=== PATIENT | female | born 1985 | race Two or more races ===

== ENCOUNTER 2020-04-02 05:59 | Day surgery (SDC) | payer OTHER | END 2020-04-02 10:30 | disposition home or self-care (01) | LOC: AMB-ENDOS 05:59 → ADM 14:00 | PROVIDERS: ATTEND Surgery | DX: D13.1 Benign neoplasm of stomach (principal); K44.9 Diaphragmatic hernia without obstruction or gangrene ==

== ENCOUNTER 2024-08-22 10:40 | Outpatient (CLI) | payer OTHER | END 2024-08-22 10:41 | disposition home or self-care (01) | LOC: NUCLEAR 10:40 | PROVIDERS: ATTEND Internal Medicine Rheumatology | DX: M25.50 Pain in unspecified joint (principal) ==

== ENCOUNTER 2025-08-04 09:30 | Inpatient (IN) | payer OTHER ==
[~2025-08-04] VITALS: Ht 160 cm; Wt 73.5 kg
[2025-08-04] MEDS ORDERED: HORIZANT300 MG PO (11:49)
[2025-08-04] MEDS ORDERED: SERTRALINE20 MG/1 ML (11:49)
[2025-08-04] MEDS ORDERED: TRAZODONE HCL100 MG PO (11:49)
[2025-08-04] MEDS ORDERED: PEPCID AC20 MG PO (11:50)
[2025-08-04 11:51] VITALS: BP 121/76
[2025-08-04 11:59] VITALS: BP 99/63
[2025-08-04 12:05] LABS: BASO % 0.5 % (0.1-1.2); EOS # 0.04 (0.04-0.54); EOS % 0.7 % (0.7-7.0); LYMPH # 1.32 (1.18-3.74); LYMPH % 22.8 % (19.3-53.1); MEAN PLATELET VOLUME 10.40 fl (9.4-12.4); MONO # 0.38 (0.24-0.82); MONO % 6.6 % (4.7-12.5); NEUT # 3.99 (1.56-6.13); NEUT % 69.1 % (34.0-71.1); RED CELL DISTRIBUTION WIDTH 12.6 % (11.6-14.4)
[2025-08-04 12:26] LABS: INR 1.04
[2025-08-04 12:51] LABS: ALT/SGPT 30.0 U/L (12-78); AST/SGOT 17.0 U/L (15-37); BILIRUBIN TOTAL 0.67 mg/dL (0.3-1.2); BUN CREA RATIO 32.0 (7.0-25.0); CREATININE SERUM 0.63 mg/dL (0.55-1.02); GFR 104.66; GLOBULINA 3.1 G/DL (2.4-3.5); GLUCOSE FASTING 88.0 mg/dL (65-100); OSMOLALITY SERUM 285.0 MOSM/KG (275-295)
[2025-08-12] MEDS ORDERED: CEFAZOLIN SODIUM 1,000 MG VIAL ONE (08:39)
[2025-08-12] MEDS ORDERED: POVIDONE-IODINE 118 ML BOTT TOP ONE (11:49)
[2025-08-12] MEDS ORDERED: THROMBIN,HU/FIBRINOGEN/CALCIUM 10 ML SYRINGE TOP ONE (15:59)
[2025-08-12] MEDS ORDERED: VISTASEAL DUAL APPICATOR 1 EACH APPL TOP ONE (16:46)
[2025-08-12] MEDS ORDERED: KETOROLAC TROMETHAMINE 30 MG VIAL IV SCH (19:09)
[2025-08-12] MEDS ORDERED: OxyCODONE HCL 5 MG TABLET (ROXICODONE) PO SCH (19:10)
[2025-08-12] MEDS ORDERED: ACETAMINOPHEN 500 MG GEL..CAP PO SCH (19:10)
[2025-08-12] MEDS ORDERED: RINGERS SOLUTION,LACTATED 1,000 ML IV SCH (19:15)
[2025-08-12] MEDS ORDERED: KETOROLAC TROMETHAMINE 30 MG VIAL IV ONE (21:15)
[2025-08-12 21:40] VITALS: BP 121/76
[2025-08-12 21:41] LABS: BASO % 0.1 % (0.1-1.2); EOS # 0.00 (0.04-0.54); EOS % 0.0 % (0.7-7.0); LYMPH # 0.45 (1.18-3.74); LYMPH % 3.2 % (19.3-53.1); MEAN PLATELET VOLUME 10.50 fl (9.4-12.4); MONO # 0.93 (0.24-0.82); MONO % 6.6 % (4.7-12.5); NEUT # 12.73 (1.56-6.13); NEUT % 89.7 % (34.0-71.1); RED CELL DISTRIBUTION WIDTH 12.1 % (11.6-14.4)
[2025-08-12] MEDS ORDERED: MORPHINE SULFATE 4 MG/ML CARTRIDGE IV PRN ×2 (22:00→22:15)
[2025-08-12] MEDS ORDERED: KETOROLAC TROMETHAMINE 30 MG VIAL IV PRN (22:15)
[2025-08-12] MEDS ORDERED: ONDANSETRON HCL 2 MG/ML VIAL IV PRN (23:30)
[2025-08-13 00:53] VITALS: BP 105/65
[2025-08-13 04:33] VITALS: BP 102/66
[2025-08-13 08:41] VITALS: BP 104/65
[2025-08-13] MEDS ORDERED: SIMETHICONE 125 MG CAPSULE PO SCH (09:00)
[2025-08-13] MEDS ORDERED: GABAPENTIN 300 MG CAPSULE PO SCH (09:00)
[2025-08-13 17:29] VITALS: BP 105/67
[2025-08-14 00:29] VITALS: BP 107/68
[2025-08-14 08:00] VITALS: BP 116/80
== END 2025-08-14 09:15 | disposition home or self-care (01) | DRG 743 ==
LOC: EDSTATUS 09:30 → ADM 09:30 → O/R 08-12 08:00 → OB/GYN 08-12 08:00 → SURG 08-12 09:30 → OB/GYN 08-12 18:25 → O/R 08-13 09:29 → OB/GYN 08-13 09:31
PROVIDERS: ADMIT Student in an Organized Health Care Education/Training Program; ATTEND Student in an Organized Health Care Education/Training Program
PROC: 0UT74ZZ Resection of Bilateral Fallopian Tubes, Percutaneous Endoscopic Approach (ICD-10-PCS; 2025-08-12)
PROC: 0UT14ZZ Resection of Left Ovary, Percutaneous Endoscopic Approach (ICD-10-PCS; 2025-08-12)
PROC: 0TNB4ZZ Release Bladder, Percutaneous Endoscopic Approach (ICD-10-PCS; 2025-08-12)
PROC: 0DNW4ZZ Release Peritoneum, Percutaneous Endoscopic Approach (ICD-10-PCS; 2025-08-12)
PROC: 0T788DZ Dilation of Bilateral Ureters with Intraluminal Device, Via Natural or Artificial Opening Endoscopic (ICD-10-PCS; 2025-08-12)
PROC: 8E0W4CZ Robotic Assisted Procedure of Trunk Region, Percutaneous Endoscopic Approach (ICD-10-PCS; 2025-08-12)
PROC: 0TJB8ZZ Inspection of Bladder, Via Natural or Artificial Opening Endoscopic (ICD-10-PCS; 2025-08-12)
PROC: 0UT94ZZ Resection of Uterus, Percutaneous Endoscopic Approach (ICD-10-PCS; principal; 2025-08-12 11:45)
DX: D25.1 Intramural leiomyoma of uterus (principal); N93.9 Abnormal uterine and vaginal bleeding, unspecified; R10.20 Pelvic and perineal pain unspecified side; N80.03 Adenomyosis of the uterus; Z90.710 Acquired absence of both cervix and uterus; N80.00 Endometriosis of the uterus, unspecified; N80.203 Endometriosis of bilateral fallopian tubes, unspecified depth; N80.353 Endometriosis of bilateral pelvic sidewall, unspecified depth; K66.0 Peritoneal adhesions (postprocedural) (postinfection)
CPT/HCPCS: 58573; 52000; 52332; 44180; S2900

== ENCOUNTER 2025-08-18 13:15 | Inpatient (IN) | payer OTHER ==
[~2025-08-18] VITALS: Ht 160 cm; Wt 72.6 kg
[~2025-08-18 13:15] MED LIST: HORIZANT300 MG PO; PEPCID AC20 MG PO; SERTRALINE20 MG/1 ML; TRAZODONE HCL100 MG PO
[2025-08-18] MEDS ORDERED: PERCOCET 5-3251 EACH PO (14:17)
[2025-08-18] MEDS ORDERED: MORPHINE SULFATE 4 MG/ML CARTRIDGE IV SCH (15:39)
[2025-08-18] MEDS ORDERED: PIPERACILLIN/TAZOBACTAM SODIUM 3.375 GM VIAL IV SCH (15:39)
[2025-08-18] MEDS ORDERED: ONDANSETRON HCL 2 MG/ML VIAL IV ONE (15:45)
[2025-08-18] MEDS ORDERED: FAMOtidine 10 MG/ML (4ML VIAL) IV ONE (15:45)
[2025-08-18] MEDS ORDERED: 0.9 % SODIUM CHLORIDE 1,000 ML IV SCH (15:45)
[2025-08-18] MEDS ORDERED: ONDANSETRON HCL 2 MG/ML VIAL ONE (16:18)
[2025-08-18] MEDS ORDERED: FAMOTIDINE/PF 20 MG/2 ML VIAL ONE (16:18)
[2025-08-18] MEDS ORDERED: PIPERACILLIN/TAZOBACTAM SODIUM 3.375 GM VIAL IV ONE (16:18)
[2025-08-18 16:28] LABS: BASO % 0.4 % (0.1-1.2); EOS # 0.22 (0.04-0.54); EOS % 2.8 % (0.7-7.0); LYMPH # 1.74 (1.18-3.74); LYMPH % 22.5 % (19.3-53.1); MEAN PLATELET VOLUME 10.20 fl (9.4-12.4); MONO # 0.66 (0.24-0.82); MONO % 8.5 % (4.7-12.5); NEUT # 5.08 (1.56-6.13); NEUT % 65.5 % (34.0-71.1); RED CELL DISTRIBUTION WIDTH 12.5 % (11.6-14.4)
[2025-08-18 16:44] LABS: ERYTHROCYTE SEDIMENTATION RATE 49 mm/hr (0-20)
[2025-08-18 16:58] LABS: INR 1.05
[2025-08-18] MEDS ORDERED: MORPHINE SULFATE 4 MG/ML CARTRIDGE IV ONE (17:00)
[2025-08-18 17:01] LABS: ALT/SGPT 89.0 U/L (12-78); AST/SGOT 53.0 U/L (15-37); BILIRUBIN TOTAL 0.83 mg/dL (0.3-1.2); BUN CREA RATIO 19.0 (7.0-25.0); CREATININE SERUM 0.75 mg/dL (0.55-1.02); GFR 85.58; GLOBULINA 4.5 G/DL (2.4-3.5); GLUCOSE FASTING 98.0 mg/dL (65-100); OSMOLALITY SERUM 280.0 MOSM/KG (275-295)
[2025-08-18] MEDS ORDERED: DEXAMETHASONE SODIUM PHOSP/PF 10 MG/ML VIAL IV ONE (20:45)
[2025-08-18 20:55] LABS: URINE APPEARANCE Clear; URINE BILIRRUBIN Negative (NEGATIVE); URINE BLOOD Negative; URINE COLOR Dark Yellow; URINE GLUCOSE Negative (NEGATIVE); URINE KETONE 15 (NEGATIVE); URINE LEUKOCYTE Negative; URINE NITRATE Positive; URINE PROTEIN Negative (NEGATIVE); URINE UROBILINOGEN 1.0 E.U./dl
[2025-08-18 21:03] LABS: URINE BACTERIA 318.0 uL (0.0-1933); URINE EPITHELIAL CELLS 13.6 uL (0.0-38.8); URINE RBC 36.0 uL (0.0-20.8); URINE WBC 3.3 uL (0.0-23.2)
[2025-08-18 21:18] LABS: URINE CAST 0.00 uL (0.0-1.40)
[2025-08-18] MEDS ORDERED: GABAPENTIN 600 MG TABLET PO SCH (21:36)
[2025-08-18] MEDS ORDERED: DEXAMETHASONE SODIUM PHOSPHATE 4 MG/ML VIAL ONE (21:51)
[2025-08-19] MEDS ORDERED: CYCLOBENZAPRINE HCL 5 MG TABLET PO SCH
[2025-08-19 00:48] VITALS: BP 103/69
[2025-08-19 02:49] VITALS: BP 99/62
[2025-08-19 08:19] VITALS: BP 90/60
[2025-08-19] MEDS ORDERED: DOCUSATE SODIUM 100MG CAP PO SCH (09:00)
[2025-08-19] MEDS ORDERED: SIMETHICONE 125 MG CAPSULE PO SCH (09:00)
[2025-08-19 16:54] VITALS: BP 104/63
[2025-08-19] MEDS ORDERED: METOCLOPRAMIDE HCL 10 MG TABLET PO SCH (18:00)
[2025-08-20] VITALS: BP 97/61
[2025-08-20 06:51] LABS: BASO % 0.4 % (0.1-1.2); EOS # 0.33 (0.04-0.54); EOS % 4.7 % (0.7-7.0); LYMPH # 1.85 (1.18-3.74); LYMPH % 26.5 % (19.3-53.1); MEAN PLATELET VOLUME 10.80 fl (9.4-12.4); MONO # 0.49 (0.24-0.82); MONO % 7.0 % (4.7-12.5); NEUT # 4.26 (1.56-6.13); NEUT % 61.1 % (34.0-71.1); RED CELL DISTRIBUTION WIDTH 12.5 % (11.6-14.4)
[2025-08-20 07:19] LABS: BUN CREA RATIO 27.0 (7.0-25.0); CREATININE SERUM 0.62 mg/dL (0.55-1.02); GFR 106.61; GLUCOSE FASTING 112.0 mg/dL (65-100); OSMOLALITY SERUM 289.0 MOSM/KG (275-295)
[2025-08-20 08:00] VITALS: BP 97/61
[2025-08-20] MEDS ORDERED: OxyCODONE HCL 5 MG TABLET (ROXICODONE) PO PRN (15:15)
[2025-08-20 16:00] VITALS: BP 92/60
[2025-08-20] MEDS ORDERED: GABAPENTIN 600 MG TABLET PO SCH (17:00)
[2025-08-20] MEDS ORDERED: SOD FERRIC GLUC COMPLX/SUCROSE 125 MG in 0.9 % SODIUM CHLORIDE 100 ML IV SCH (17:00)
[2025-08-21 01:37] VITALS: BP 97/64
[2025-08-21 07:07] LABS: BASO % 0.7 % (0.1-1.2); EOS # 0.31 (0.04-0.54); EOS % 5.1 % (0.7-7.0); LYMPH # 1.85 (1.18-3.74); LYMPH % 30.3 % (19.3-53.1); MEAN PLATELET VOLUME 10.80 fl (9.4-12.4); MONO # 0.42 (0.24-0.82); MONO % 6.9 % (4.7-12.5); NEUT # 3.47 (1.56-6.13); NEUT % 56.7 % (34.0-71.1); RED CELL DISTRIBUTION WIDTH 12.8 % (11.6-14.4)
[2025-08-21 07:36] LABS: ALT/SGPT 53.0 U/L (12-78); AST/SGOT 25.0 U/L (15-37); BILIRUBIN TOTAL 0.23 mg/dL (0.3-1.2); BUN CREA RATIO 27.0 (7.0-25.0); CREATININE SERUM 0.66 mg/dL (0.55-1.02); GFR 99.19; GLOBULINA 3.0 G/DL (2.4-3.5); GLUCOSE FASTING 92.0 mg/dL (65-100); OSMOLALITY SERUM 288.0 MOSM/KG (275-295)
[2025-08-21 08:00] VITALS: BP 95/62
[2025-08-21] MEDS ORDERED: TRAMADOL HCL 50 MG TABLET PO PRN (13:45)
[2025-08-21] MEDS ORDERED: MORPHINE SULFATE 4 MG/ML CARTRIDGE IV SCH (14:00)
[2025-08-21 16:08] VITALS: BP 106/69
[2025-08-21] MEDS ORDERED: PHENAZOPYRIDINE HCL 100 MG TABLET PO SCH (17:00)
[2025-08-22] VITALS: BP 80/50; O2SAT 99
[2025-08-22 04:30] VITALS: BP 80/50
[2025-08-22 08:00] VITALS: BP 96/56
[2025-08-22 11:50] LABS: INR 1.09
[2025-08-22 17:29] VITALS: BP 98/62
[2025-08-23 00:13] VITALS: BP 93/60; O2SAT 98
[2025-08-23 06:48] LABS: BASO % 0.7 % (0.1-1.2); EOS # 0.40 (0.04-0.54); EOS % 5.6 % (0.7-7.0); LYMPH # 1.60 (1.18-3.74); LYMPH % 22.2 % (19.3-53.1); MEAN PLATELET VOLUME 10.70 fl (9.4-12.4); MONO # 0.55 (0.24-0.82); MONO % 7.6 % (4.7-12.5); NEUT # 4.57 (1.56-6.13); NEUT % 63.5 % (34.0-71.1); RED CELL DISTRIBUTION WIDTH 12.6 % (11.6-14.4)
[2025-08-23 09:09] VITALS: BP 82/45
[2025-08-23 09:30] LABS: ALT/SGPT 45.0 U/L (12-78); AST/SGOT 23.0 U/L (15-37); BILIRUBIN TOTAL 0.39 mg/dL (0.3-1.2); BUN CREA RATIO 23.0 (7.0-25.0); CREATININE SERUM 0.75 mg/dL (0.55-1.02); GFR 85.58; GLOBULINA 3.0 G/DL (2.4-3.5); GLUCOSE FASTING 95.0 mg/dL (65-100); OSMOLALITY SERUM 288.0 MOSM/KG (275-295)
[2025-08-23] MEDS ORDERED: ACETAMINOPHEN 500 MG GEL..CAP PO STA (12:28)
[2025-08-23] MEDS ORDERED: Cyanocobalamin/Mecobalamin 1 TAB.SL SL NR (12:45)
[2025-08-23] MEDS ORDERED: GABAPENTIN 600 MG TABLET PO SCH (13:00)
[2025-08-23] MEDS ORDERED: ACETAMINOPHEN 500 MG GEL..CAP PO SCH (18:00)
[2025-08-23 18:45] VITALS: BP 99/64
[2025-08-24] VITALS: BP 103/67
[2025-08-24 01:35] LABS: BASO % 0.8 % (0.1-1.2); EOS # 0.46 (0.04-0.54); EOS % 6.2 % (0.7-7.0); LYMPH # 1.68 (1.18-3.74); LYMPH % 22.5 % (19.3-53.1); MEAN PLATELET VOLUME 10.40 fl (9.4-12.4); MONO # 0.56 (0.24-0.82); MONO % 7.5 % (4.7-12.5); NEUT # 4.66 (1.56-6.13); NEUT % 62.5 % (34.0-71.1); RED CELL DISTRIBUTION WIDTH 12.8 % (11.6-14.4)
[2025-08-24] MEDS ORDERED: Cyanocobalamin/Mecobalamin 1 TAB.SL SL SCH (09:00)
[2025-08-24 09:05] VITALS: BP 84/52
[2025-08-24 16:00] VITALS: BP 109/73
[2025-08-24] MEDS ORDERED: FAMOTIDINE/PF 20 MG/2 ML VIAL IV SCH (21:07)
[2025-08-24] MEDS ORDERED: ONDANSETRON HCL 2 MG/ML VIAL IV PRN (21:15)
[2025-08-25 00:30] VITALS: BP 102/66
[2025-08-25 07:34] LABS: BASO % 0.7 % (0.1-1.2); EOS # 0.49 (0.04-0.54); EOS % 5.6 % (0.7-7.0); LYMPH # 1.24 (1.18-3.74); LYMPH % 14.3 % (19.3-53.1); MEAN PLATELET VOLUME 10.20 fl (9.4-12.4); MONO # 0.66 (0.24-0.82); MONO % 7.6 % (4.7-12.5); NEUT # 6.21 (1.56-6.13); NEUT % 71.3 % (34.0-71.1); RED CELL DISTRIBUTION WIDTH 13.2 % (11.6-14.4)
[2025-08-25 08:29] VITALS: BP 105/66
[2025-08-25 09:13] LABS: ALT/SGPT 47.0 U/L (12-78); AST/SGOT 26.0 U/L (15-37); BILIRUBIN TOTAL 0.49 mg/dL (0.3-1.2); BUN CREA RATIO 16.0 (7.0-25.0); CREATININE SERUM 0.68 mg/dL (0.55-1.02); GFR 95.83; GLOBULINA 2.8 G/DL (2.4-3.5); GLUCOSE FASTING 92.0 mg/dL (65-100); OSMOLALITY SERUM 286.0 MOSM/KG (275-295)
[2025-08-25 16:25] VITALS: BP 90/57
[2025-08-26 00:08] VITALS: BP 122/80
[2025-08-26 07:30] VITALS: BP 118/81
[2025-08-26] MEDS ORDERED: CYCLOBENZAPRINE HCL 5 MG TABLET PO SCH (20:08)
[2025-08-26] MEDS ORDERED: KETOROLAC TROMETHAMINE 30 MG VIAL IV SCH (20:08)
[2025-08-26] MEDS ORDERED: MORPHINE SULFATE 4 MG/ML CARTRIDGE IV SCH (21:00)
[2025-08-26 22:12] VITALS: BP 118/83
[2025-08-27 01:23] VITALS: BP 92/58
[2025-08-27 08:00] VITALS: BP 96/61
[2025-08-27] MEDS ORDERED: DIPHENHYDRAMINE HCL 50 MG CAPSULE PO SCH (12:00)
[2025-08-27 12:54] LABS: BASO % 0.7 % (0.1-1.2); EOS # 0.30 (0.04-0.54); EOS % 5.4 % (0.7-7.0); LYMPH # 1.08 (1.18-3.74); LYMPH % 19.4 % (19.3-53.1); MEAN PLATELET VOLUME 10.20 fl (9.4-12.4); MONO # 0.55 (0.24-0.82); MONO % 9.9 % (4.7-12.5); NEUT # 3.57 (1.56-6.13); NEUT % 64.2 % (34.0-71.1); RED CELL DISTRIBUTION WIDTH 14.1 % (11.6-14.4)
[2025-08-27 14:27] LABS: ALT/SGPT 127.0 U/L (12-78); AST/SGOT 91.0 U/L (15-37); BILIRUBIN TOTAL 0.59 mg/dL (0.3-1.2); BUN CREA RATIO 13.0 (7.0-25.0); CREATININE SERUM 0.7 mg/dL (0.55-1.02); GFR 92.68; GLOBULINA 3.4 G/DL (2.4-3.5); GLUCOSE FASTING 96.0 mg/dL (65-100); OSMOLALITY SERUM 285.0 MOSM/KG (275-295)
[2025-08-27 16:35] VITALS: BP 93/60
[2025-08-27 20:46] VITALS: BP 114/77
[2025-08-27] MEDS ORDERED: CYCLOBENZAPRINE HCL 5 MG TABLET PO SCH ×2 (21:00→22:30)
[2025-08-27] MEDS ORDERED: GABAPENTIN 800 MG TABLET PO SCH (22:15)
[2025-08-27] MEDS ORDERED: DIPHENHYDRAMINE HCL 50 MG CAPSULE PO PRN (22:17)
[2025-08-27] MEDS ORDERED: MORPHINE SULFATE 4 MG/ML CARTRIDGE IV SCH (22:30)
[2025-08-28] VITALS: BP 98/61
[2025-08-28 08:00] VITALS: BP 114/72
[2025-08-28] MEDS ORDERED: GABAPENTIN 800 MG TABLET PO SCH (14:00)
[2025-08-28] MEDS ORDERED: MORPHINE SULFATE 4 MG/ML VIAL IV SCH (14:00)
[2025-08-28] MEDS ORDERED: CYCLOBENZAPRINE HCL 5 MG TABLET PO SCH (14:00)
[2025-08-28 17:03] VITALS: BP 100/62
[2025-08-28 20:00] VITALS: BP 85/51
[2025-08-29] VITALS: BP 82/50
[2025-08-29 08:48] VITALS: BP 115/74
[2025-08-29] MEDS ORDERED: AMPICILLIN SODIUM/SULBACTAM NA 3,000 MG VIAL IV NR (09:30)
[2025-08-29] MEDS ORDERED: levoFLOXacin IN DEXTROSE 5 % 150 ML IV SCH (10:00)
[2025-08-29] MEDS ORDERED: AMPICILLIN SODIUM/SULBACTAM NA 3,000 MG VIAL IV SCH (14:00)
[2025-08-29 16:46] VITALS: BP 100/60
[2025-08-29 20:00] VITALS: BP 98/64
[2025-08-30 00:45] VITALS: BP 96/63
[2025-08-30 09:52] VITALS: BP 103/67
[2025-08-30 10:41] LABS: BASO % 0.5 % (0.1-1.2); EOS # 0.39 (0.04-0.54); EOS % 9.3 % (0.7-7.0); LYMPH # 1.19 (1.18-3.74); LYMPH % 28.5 % (19.3-53.1); MEAN PLATELET VOLUME 10.50 fl (9.4-12.4); MONO # 0.48 (0.24-0.82); MONO % 11.5 % (4.7-12.5); NEUT # 2.08 (1.56-6.13); NEUT % 49.7 % (34.0-71.1); RED CELL DISTRIBUTION WIDTH 14.6 % (11.6-14.4)
[2025-08-30 11:33] LABS: ALT/SGPT 92.0 U/L (12-78); AST/SGOT 45.0 U/L (15-37); BILIRUBIN TOTAL 0.39 mg/dL (0.3-1.2); BUN CREA RATIO 21.0 (7.0-25.0); CREATININE SERUM 0.58 mg/dL (0.55-1.02); GFR 115.14; GLOBULINA 3.1 G/DL (2.4-3.5); GLUCOSE FASTING 73.0 mg/dL (65-100); OSMOLALITY SERUM 281.0 MOSM/KG (275-295)
[2025-08-30 14:01] VITALS: BP 108/68
[2025-08-30 16:00] VITALS: BP 101/64
[2025-08-31] VITALS: BP 100/65
[2025-08-31 09:50] VITALS: BP 100/64
[2025-08-31] MEDS ORDERED: MORPHINE SULFATE 4 MG/ML CARTRIDGE IV STA (14:56)
[2025-08-31] MEDS ORDERED: DIPHENHYDRAMINE HCL 50 MG/ML VIAL 1ML IV STA (15:18)
[2025-08-31 16:07] VITALS: BP 124/79
[2025-08-31] MEDS ORDERED: GABAPENTIN 800 MG TABLET PO SCH ×2 (18:00)
[2025-08-31] MEDS ORDERED: MORPHINE SULFATE 4 MG/ML VIAL IV SCH (18:00)
[2025-08-31] MEDS ORDERED: MORPHINE SULFATE 4 MG/ML CARTRIDGE IV SCH (18:00)
[2025-09-01 01:11] VITALS: BP 102/66
[2025-09-01 09:38] VITALS: BP 104/71
[2025-09-01 16:02] VITALS: BP 113/75
[2025-09-02 00:50] VITALS: BP 97/58
[2025-09-02 08:08] VITALS: BP 97/61
[2025-09-02] MEDS ORDERED: PATIENTS OWN MEDICATION (MEDICAMENTO EN PISO) PO SCH (09:00)
[2025-09-02 15:07] VITALS: BP 106/71
[2025-09-02] MEDS ORDERED: MORPHINE SULFATE 4 MG/ML CARTRIDGE IV SCH (22:33)
[2025-09-03 00:34] VITALS: BP 102/65
[2025-09-03 08:02] VITALS: BP 95/60
[2025-09-03 16:19] VITALS: BP 114/67
[2025-09-03] MEDS ORDERED: MORPHINE SULFATE 4 MG/ML CARTRIDGE IV SCH (21:15)
[2025-09-04] VITALS: BP 101/68
[2025-09-04] MEDS ORDERED: MORPHINE SULFATE 4 MG/ML CARTRIDGE IV SCH (06:52)
[2025-09-04 08:00] VITALS: BP 105/74
[2025-09-04 12:06] LABS: BASO % 0.7 % (0.1-1.2); EOS # 0.36 (0.04-0.54); EOS % 5.2 % (0.7-7.0); LYMPH # 1.52 (1.18-3.74); LYMPH % 22.1 % (19.3-53.1); MEAN PLATELET VOLUME 10.20 fl (9.4-12.4); MONO # 0.44 (0.24-0.82); MONO % 6.4 % (4.7-12.5); NEUT # 4.46 (1.56-6.13); NEUT % 65.0 % (34.0-71.1); RED CELL DISTRIBUTION WIDTH 15.0 % (11.6-14.4)
[2025-09-04 12:16] LABS: ERYTHROCYTE SEDIMENTATION RATE 16 mm/hr (0-20)
[2025-09-04 12:33] LABS: ALT/SGPT 78.0 U/L (12-78); AST/SGOT 32.0 U/L (15-37); BILIRUBIN TOTAL 0.56 mg/dL (0.3-1.2); BUN CREA RATIO 20.0 (7.0-25.0); CREATININE SERUM 0.64 mg/dL (0.55-1.02); GFR 102.78; GLOBULINA 3.2 G/DL (2.4-3.5); GLUCOSE FASTING 84.0 mg/dL (65-100); OSMOLALITY SERUM 288.0 MOSM/KG (275-295)
[2025-09-04 16:32] VITALS: BP 94/63
[2025-09-05] MEDS ORDERED: GABAPENTIN 300 MG CAPSULE PO SCH
[2025-09-05 00:30] VITALS: BP 106/67
[2025-09-05 08:48] VITALS: BP 96/61
[2025-09-05 16:00] VITALS: BP 103/67
[2025-09-05] MEDS ORDERED: ONDANSETRON HCL 2 MG/ML VIAL IV PRN (19:15)
[2025-09-06] VITALS: BP 104/68
[2025-09-06 08:11] VITALS: BP 100/65
[2025-09-06] MEDS ORDERED: PATIENTS OWN MEDICATION (MEDICAMENTO EN PISO) PO SCH (17:00)
[2025-09-07] MEDS ORDERED: PATIENTS OWN MEDICATION (MEDICAMENTO EN PISO) PO SCH (09:00)
== END 2025-09-06 10:17 | disposition home or self-care (01) | DRG 690 ==
LOC: ER 13:16 → OB/GYN 22:03
PROVIDERS: General Practice; Internal Medicine; Internal Medicine Geriatric Medicine; Internal Medicine Infectious Disease; Student in an Organized Health Care Education/Training Program; ADMIT Student in an Organized Health Care Education/Training Program; ATTEND Student in an Organized Health Care Education/Training Program
PROC: BW21ZZZ Computerized Tomography (CT Scan) of Abdomen and Pelvis (ICD-10-PCS; principal; 2025-08-18)
PROC: BW4GZZZ Ultrasonography of Pelvic Region (ICD-10-PCS; 2025-08-20)
PROC: BT43ZZZ Ultrasonography of Bilateral Kidneys (ICD-10-PCS; 2025-08-20)
PROC: BW21YZZ Computerized Tomography (CT Scan) of Abdomen and Pelvis using Other Contrast (ICD-10-PCS; 2025-08-21)
PROC: 30233N1 Transfusion of Nonautologous Red Blood Cells into Peripheral Vein, Percutaneous Approach (ICD-10-PCS; 2025-08-23)
PROC: BW21YZZ Computerized Tomography (CT Scan) of Abdomen and Pelvis using Other Contrast (ICD-10-PCS; 2025-08-31)
DX: N39.0 Urinary tract infection, site not specified (principal); Z90.710 Acquired absence of both cervix and uterus; N80.122 Deep endometriosis of left ovary; D25.9 Leiomyoma of uterus, unspecified; D64.9 Anemia, unspecified; B95.2 Enterococcus as the cause of diseases classified elsewhere; B96.29 Other Escherichia coli [E. coli] as the cause of diseases classified elsewhere; B96.89 Other specified bacterial agents as the cause of diseases classified elsewhere

== ENCOUNTER 2025-09-22 11:35 | Emergency (ER) | payer OTHER ==
[~2025-09-22] VITALS: Ht 160 cm; Wt 74.8 kg
[~2025-09-22 11:35] MED LIST changes: +PERCOCET 5-3251 EACH PO
[2025-09-22] MEDS ORDERED: 0.9 % SODIUM CHLORIDE 1,000 ML IV ONE (16:15)
[2025-09-22] MEDS ORDERED: FAMOTIDINE/PF 20 MG/2 ML VIAL IV ONE (16:15)
[2025-09-22] MEDS ORDERED: ONDANSETRON HCL 2 MG/ML VIAL IV ONE (16:15)
[2025-09-22] MEDS ORDERED: MORPHINE SULFATE 4 MG/ML CARTRIDGE IV ONE (16:30)
[2025-09-22] MEDS ORDERED: ONDANSETRON HCL 2 MG/ML VIAL ONE (17:34)
[2025-09-22] MEDS ORDERED: FAMOTIDINE/PF 20 MG/2 ML VIAL ONE (17:34)
[2025-09-22 17:41] LABS: BASO % 0.5 % (0.1-1.2); EOS # 0.16 (0.04-0.54); EOS % 2.6 % (0.7-7.0); LYMPH # 1.84 (1.18-3.74); LYMPH % 29.4 % (19.3-53.1); MEAN PLATELET VOLUME 9.80 fl (9.4-12.4); MONO # 0.47 (0.24-0.82); MONO % 7.5 % (4.7-12.5); NEUT # 3.73 (1.56-6.13); NEUT % 59.7 % (34.0-71.1); RED CELL DISTRIBUTION WIDTH 14.6 % (11.6-14.4)
[2025-09-22 18:06] LABS: ERYTHROCYTE SEDIMENTATION RATE 15 mm/hr (0-20)
[2025-09-22 18:19] LABS: ALT/SGPT 60 U/L (12-78); AST/SGOT 32 U/L (15-37); BILIRUBIN TOTAL 0.62 mg/dL (0.3-1.2); BUN CREA RATIO 25 (7.0-25.0); CREATININE SERUM 0.55 mg/dL (0.55-1.02); GFR 122.42; GLOBULINA 3.8 G/DL (2.4-3.5); GLUCOSE FASTING 89 mg/dL (65-100); OSMOLALITY SERUM 281 MOSM/KG (275-295)
[2025-09-22 19:00] LABS: URINE APPEARANCE Clear; URINE BILIRRUBIN Negative (NEGATIVE); URINE BLOOD Negative; URINE COLOR Yellow; URINE GLUCOSE Negative (NEGATIVE); URINE KETONE Negative (NEGATIVE); URINE LEUKOCYTE Trace; URINE NITRATE Negative; URINE PROTEIN Negative (NEGATIVE); URINE UROBILINOGEN 0.2 E.U./dl
[2025-09-22 19:02] LABS: COVID-19 AG NEGATIVE (NEGATIVE)
[2025-09-22 19:05] LABS: URINE BACTERIA 166.9 uL (0.0-1933); URINE EPITHELIAL CELLS 9.9 uL (0.0-38.8); URINE RBC 25.3 uL (0.0-20.8); URINE WBC 3.9 uL (0.0-23.2)
[2025-09-22 19:08] LABS: URINE CAST 0.14 uL (0.0-1.40)
[2025-09-22] MEDS ORDERED: LACTULOSE 20 G/30 ML BLIST.PACK PO ONE (20:00)
[2025-09-22] MEDS ORDERED: MINERAL OIL 30 ML BLIST.PACK PO ONE (20:00)
[2025-09-22] MEDS ORDERED: MAGNESIUM HYDROXIDE 400 MG/5 ML ML PO ONE (20:00)
[2025-09-22] MEDS ORDERED: MIRALAX17 GM PO (20:04)
[2025-09-22] MEDS ORDERED: LACTULOSE 20 G/30 ML BLIST.PACK ONE (20:34)
[2025-09-22] MEDS ORDERED: MINERAL OIL 30 ML BLIST.PACK ONE (20:34)
[2025-09-22] MEDS ORDERED: MAGNESIUM HYDROXIDE 30 ML BLIST.PACK PO ONE (20:34)
== END 2025-09-22 20:49 ==
LOC: ER 11:36
PROVIDERS: General Practice
DX: R10.20 Pelvic and perineal pain unspecified side (principal); R50.9 Fever, unspecified; R30.0 Dysuria; Z20.822 Contact with and (suspected) exposure to COVID-19; Z88.6 Allergy status to analgesic agent
CPT/HCPCS: 36415; 71046; 74177; Q9965